=== PATIENT | female | born 1990 | race Caucasian/White ===

== ENCOUNTER 2018-11-24 07:45 | Emergency (ER) | payer OTHER ==
[~2018-11-24] VITALS: Ht 162.6 cm; Wt 71.7 kg
== END 2018-11-24 16:14 | disposition home or self-care (01) ==
LOC: ER 07:45
DX: K52.9 Noninfective gastroenteritis and colitis, unspecified (principal)

== ENCOUNTER 2019-04-18 05:49 | Emergency (ER) | payer OTHER ==
[~2019-04-18] VITALS: Ht 162.6 cm; Wt 68.0 kg
[2019-04-18] MEDS ORDERED: CYCLOBENZAPRINE10 MG PO (06:04)
[2019-04-18] MEDS ORDERED: CAMBIA50 MG PO (06:04)
== END 2019-04-18 09:33 | disposition home or self-care (01) ==
LOC: ER 05:49
DX: M54.2 Cervicalgia (principal); M62.838 Other muscle spasm; B96.0 Mycoplasma pneumoniae [M. pneumoniae] as the cause of diseases classified elsewhere

== ENCOUNTER 2019-10-23 14:49 | Outpatient (CLI) | payer OTHER ==
[~2019-10-23 14:49] MED LIST: CAMBIA50 MG PO; CYCLOBENZAPRINE10 MG PO
== END 2019-10-23 15:07 | disposition home or self-care (01) ==
LOC: SONOGRAMA 14:49
DX: N92.0 Excessive and frequent menstruation with regular cycle (principal); N94.4 Primary dysmenorrhea; N83.00 Follicular cyst of ovary, unspecified side

== ENCOUNTER 2022-09-11 12:31 | Outpatient (CLI) | payer OTHER | END 2022-09-11 12:41 | disposition home or self-care (01) | LOC: SONOGRAMA 12:31 | DX: N94.6 Dysmenorrhea, unspecified (principal); N83.00 Follicular cyst of ovary, unspecified side; N92.0 Excessive and frequent menstruation with regular cycle ==

== ENCOUNTER → 2022-12-21 | Outpatient (CLI) | payer OTHER | END | disposition home or self-care (01) | LOC: TOM 11:00 | PROVIDERS: ATTEND Specialist | DX: J01.90 Acute sinusitis, unspecified (principal) ==

== ENCOUNTER 2023-02-04 10:41 | Outpatient (CLI) | payer OTHER | END 2023-02-04 10:57 | disposition home or self-care (01) | LOC: RAD 10:41 | DX: S82.301A Unspecified fracture of lower end of right tibia, initial encounter for closed fracture (principal) ==

== ENCOUNTER 2024-06-06 11:49 | Outpatient (CLI) | payer OTHER | END 2024-06-06 11:50 | disposition home or self-care (01) | LOC: MRI 11:49 | DX: M25.551 Pain in right hip (principal) | CPT/HCPCS: 73721 ==

== ENCOUNTER 2025-01-04 09:55 | Outpatient (CLI) | payer OTHER | END 2025-01-04 09:58 | disposition home or self-care (01) | LOC: SONOGRAMA 09:55 | DX: N94.6 Dysmenorrhea, unspecified (principal); N83.00 Follicular cyst of ovary, unspecified side ==